=== PATIENT | female | born 1930 ===

== ENCOUNTER 2021-08-21 13:10 | Outpatient (CLI) | payer MEDICARE, OTHER | END 2021-08-21 13:11 | disposition home or self-care (01) | LOC: BICRAD 13:10 | PROVIDERS: ATTEND Podiatrist | DX: M79.672 Pain in left foot (principal); R60.0 Localized edema; M10.9 Gout, unspecified; M19.072 Primary osteoarthritis, left ankle and foot; M81.0 Age-related osteoporosis without current pathological fracture ==